=== PATIENT | male | born 1975 | race Caucasian/White ===

== ENCOUNTER 2022-08-25 19:53 | Emergency (ER) | payer BC | END 2022-08-25 20:58 | disposition home or self-care (01) | LOC: FB.ED 19:53 | DX: R20.8 Other disturbances of skin sensation (principal); R20.2 Paresthesia of skin; R20.0 Anesthesia of skin; R03.0 Elevated blood-pressure reading, without diagnosis of hypertension; Z72.0 Tobacco use | CPT/HCPCS: 99283 ==